=== PATIENT | female | born 1960 | race African-American/Black ===

== ENCOUNTER 2020-01-11 17:39 | Inpatient (IN) | payer SELFPAY ==
[~2020-01-11] VITALS: Ht 154.9 cm; Wt 63.9 kg
[2020-01-11] MEDS ORDERED: ASPirin 81 mg TAB PO ONE (19:00)
[2020-01-11] MEDS ORDERED: ACETAMINOPHEN 325 MG TAB PO PRN (20:15)
[2020-01-11] MEDS ORDERED: LABETALOL HCL 5 MG/ML 4ML SYRINGE IV PRN (20:15)
[2020-01-11 20:57] LABS: Basophils # (auto) 0 10 ^3/uL (0-0.2); Basophils % (auto) 0.7 % (0.0-2.0); Eosinophils # (auto) 0.1 10 ^3/uL (0-0.8); Eosinophils % (auto) 1.3 % (0.0-7.0); Hematocrit 42.5 % (36.0-46.0); Hemoglobin 14.3 g/dL (12.2-16.2); Lymphocytes # (auto) 2.7 10 ^3/uL (0.4-5.4); Lymphocytes % (auto) 40.9 % (10.0-50.0); Mean Corpuscular Hemoglobin 31.6 pg (28.0-32.0); Mean Corpuscular Hgb Conc. 33.6 g/dL (32.0-36.0); Mean Corpuscular Volume 94.2 fL (80.0-100.0); Monocytes # (auto) 0.4 10 ^3/uL (0-1.3); Monocytes % (auto) 6.2 % (0.0-12.0); Neutrophils # (auto) 3.3 10 ^3/uL (1.6-8.6); Neutrophils % (auto) 50.9 % (37.0-80.0); Nucleated Red Blood Cells % 0.1 %; Platelet Count (auto) 233 10^3/uL (140-450); Red Blood Cells 4.51 10^6/uL (4.0-5.20); Red Cell Distribution Width 13.4 % (11.8-14.3); White Blood Cell 6.6 10^3/uL (4.4-10.8)
[2020-01-11 21:15] LABS: Albumin 4.2 g/dL (3.4-5.0); Calcium 10.2 mg/dL (8.5-10.1); Cholesterol 235 mg/dL (< 200); INR 0.98 (0.9-1.15); Partial Thromboplastin Time 25.6 sec (23.0-31.2); Potassium 4.5 mmol/L (3.5-5.1)
[2020-01-11 21:18] LABS: HDL Cholesterol 50 mg/dL (40-59); LDL Cholesterol 156 mg/dL (< 100); Triglycerides 236 mg/dL (< 150)
[2020-01-11 21:19] LABS: BUN/Creatinine Ratio 17.8; Bilirubin, Total 0.3 mg/dL (0.2-1.0)
[2020-01-12] VITALS (7 sets, daily range): BP systolic 116–153; BP diastolic 69–94
[2020-01-12] MEDS ORDERED: MORPHINE SULFATE 4 MG/ML SYR/VIAL IV PRN
[2020-01-12] MEDS ORDERED: MORPHINE SULF INJ 2 MG/ML SYRINGE 1ML IV PRN
[2020-01-12] MEDS ORDERED: NITROGLYCERIN 0.4 MG SL TAB SL PRN
[2020-01-12] MEDS ORDERED: ONDANSETRON HCL 4 MG/2 ML VIAL IV PRN
[2020-01-12] MEDS ORDERED: DOCUSATE SOD 100 MG CAP PO PRN
[2020-01-12] MEDS ORDERED: ACETAMINOPHEN 325 MG TAB PO PRN
--- NOTE | 2020-01-12 01:06 | NUR ---
Telemetry admit from ER ZENON RAMOS admitted to Telemetry unit after SBAR received. Patient oriented AND ORIENTED X4 to QUINN CHACKO RN primary RN, 286b, and unit policies regarding patient care and visiting hours. Patient now on continuous telemetry monitoring, tele box 77 and telemetry reading on arrival to unit is SINUS RHYTHM. Patient placed on bedside oxygen, weighed by bedscale and encouraged to call if they need something. All questions and concerns addressed, patient verbalized understanding. Note:
[2020-01-12] MEDS: SODIUM CHLOR 0.9% PF (SALINE LOCK) 10ML VIAL/SYR IV SCH ×3 (06:53→21:30)
--- NOTE | 2020-01-12 07:00 | NUR ---
CLOSING SHIFT REPORT PATIENT ASLEEP. NO SOB AND SIGNS OF DISTRESS. BED IN LOW POSITION, LOCKED IN POSITION, CALL LIGHT WITHIN REACH, NON SKID SOCKS ON.
[2020-01-12 07:24] LABS: Basophils # (auto) 0 10 ^3/uL (0-0.2); Eosinophils # (auto) 0.1 10 ^3/uL (0-0.8); Eosinophils % (auto) 1.8 % (0.0-7.0); Hematocrit 40.6 % (36.0-46.0); Hemoglobin 13.6 g/dL (12.2-16.2); Lymphocytes % (auto) 51.2 % (10.0-50.0); Mean Corpuscular Hemoglobin 31.5 pg (28.0-32.0); Mean Corpuscular Hgb Conc. 33.5 g/dL (32.0-36.0); Mean Corpuscular Volume 94.3 fL (80.0-100.0); Monocytes # (auto) 0.3 10 ^3/uL (0-1.3); Monocytes % (auto) 7.1 % (0.0-12.0); Neutrophils # (auto) 1.5 10 ^3/uL (1.6-8.6); Neutrophils % (auto) 38.9 % (37.0-80.0); Nucleated Red Blood Cells % 0.2 %; Platelet Count (auto) 200 10^3/uL (140-450); Red Cell Distribution Width 13.1 % (11.8-14.3); White Blood Cell 3.9 10^3/uL (4.4-10.8)
[2020-01-12 07:39] LABS: Potassium 3.8 mmol/L (3.5-5.1)
--- NOTE | 2020-01-12 07:40 | NUR ---
Opening Note Received report from nightman RN. Patient is awake, alert and oriented x4. No signs or symptoms of distress noted at this time. Patient denies pain or shortness of breath at this time. Reviewed plan of care with patient, patient verbalize understanding. Bed in low and locked position, call light within reach. Will continue to monitor Q1hour and PRN.
[2020-01-12 07:54] LABS: Albumin 3.8 g/dL (3.4-5.0); Bilirubin, Total 0.5 mg/dL (0.2-1.0); Calcium 9.8 mg/dL (8.5-10.1); Total Protein 7.4 g/dL (6.4-8.2)
--- NOTE | 2020-01-12 08:07 | NUR ---
Patient taken down to MRI
--- NOTE | 2020-01-12 08:40 | NUR ---
Patient back to room
[2020-01-12] MEDS: FAMOTIDINE 20 MG TAB PO SCH ×2 (09:31→21:30)
[2020-01-12] MEDS: ASPirin 81 mg TAB PO SCH (09:31)
--- NOTE | 2020-01-12 10:40 | NUR ---
resident care technician at bedside
--- NOTE | 2020-01-12 11:46 | NUR ---
Dr. Jovi Rios MD at bedside discussing plan of care with patient and this RN. Will continue to monitor Q1 hour and PRN.
--- NOTE | 2020-01-12 12:15 | NUR ---
Patient ambulating around unit
--- NOTE | 2020-01-12 19:05 | NUR ---
Closing Note Report given to film processing shift supervisor RN. No signs or symptoms of distress noted at this time.
--- NOTE | 2020-01-12 19:30 | NUR ---
Opening Shift Note Assumed care of patient, awake and alert. No S/S of distress/SOB or pain. Fall and safety precautions in place. Call light within reach and able to use. Instructed on POC and to call for assist PRN, patient verbalized understanding and in agreement. Will continue to monitor for changes Q1hr and PRN.
[2020-01-12] MEDS ORDERED: ATORVASTATIN 20 MG TAB PO SCH (22:00)
[2020-01-13 05:00] VITALS: BP 120/81
[2020-01-13] MEDS: SODIUM CHLOR 0.9% PF (SALINE LOCK) 10ML VIAL/SYR IV SCH ×2 (05:03→09:15)
--- NOTE | 2020-01-13 07:44 | NUR ---
Opening shift note Patient currently sleeping, no s/s of distress noted. Respirations even and unlabored on room air. No signs of patient experiencing pain. Be din lowest locked position, call light within reach, will continue care.
[2020-01-13 09:00] VITALS: BP 144/86
[2020-01-13] MEDS: ASPirin 81 mg TAB PO SCH (09:15)
[2020-01-13] MEDS: FAMOTIDINE 20 MG TAB PO SCH (09:15)
--- NOTE | 2020-01-13 09:37 | NUR ---
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
--- NOTE | 2020-01-13 09:40 | NUR ---
MD SAINZ CALLED BACK PT IS CLEAR FOR DISCHARGE AND CLEAR TO DRIVE
--- NOTE | 2020-01-13 11:20 | NUR ---
ss consult Per ss consult no insurance. 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 Patient informed me she was having right side numbness and came to ER. Per patient she is doing well now and will be discharged to family locally and will go back to [place] on Wednesday or Wednesday. Patient informed me she has a long haul partner who can drive back. Patient has no insurance. Patient has been assessed by Arnaldo Joseph of [facility]. Patient does not qualify for [employer] insurance. Patient has been informed to contact her PCP in [place] and to apply for [employer] in her state. Patient verbalized understanding. Addendum: 01/13/20 at 1124 by Suma Acevedo Amended: Links added.
--- NOTE | 2020-01-13 11:37 | NUR ---
pt discharged home ambulatory to [facility], left ac and right ac iv removed pressure dressing in place, tele box removed cleaned and sent back to tele room
== END 2020-01-13 12:50 | disposition home or self-care (01) | DRG 65 ==
LOC: ER 17:39 → TELE 01-12 00:09 → TELE-WESTW 01-12 01:10
PROVIDERS: ADMIT Nurse Practitioner Family; ATTEND Family Medicine
DX: I63.9 Cerebral infarction, unspecified (principal); G81.91 Hemiplegia, unspecified affecting right dominant side; E78.00 Pure hypercholesterolemia, unspecified; E78.5 Hyperlipidemia, unspecified; F32.9 Major depressive disorder, single episode, unspecified; I10 Essential (primary) hypertension; I67.2 Cerebral atherosclerosis; Z79.82 Long term (current) use of aspirin; Z79.899 Other long term (current) drug therapy; Z82.49 Family history of ischemic heart disease and other diseases of the circulatory system; Z83.3 Family history of diabetes mellitus; Z90.710 Acquired absence of both cervix and uterus; Z80.9 Family history of malignant neoplasm, unspecified
CPT/HCPCS: 36415; 70450; 70551; 80053; 80061; 85025; 85610; 85730; 93005; 93306; 93886; 96374; G0378